=== PATIENT | male | born 1940 | race Caucasian/White ===

== ENCOUNTER 2017-10-08 05:25 | Day surgery (SDC) | payer MEDICARE, BC ==
[2017-10-02 11:46] LABS: HEMOGLOBIN 13.4 g/dL (13.5-17.0); MEAN CORPUSCULAR HEMOGLOBIN 29.4 pg (27.0-33.4); MEAN CORPUSCULAR HGB CONC 33.5 g/dL (32.0-36.0); MEAN CORPUSCULAR VOLUME 88 fl (80-97); PLATELET COUNT 286 10^3/uL (150-450); RED BLOOD COUNT 4.55 10^6/uL (4.35-5.55); RED CELL DISTRIBUTION WIDTH 14.7 % (11.5-14.0); WHITE BLOOD COUNT 12.4 10^3/uL (4.0-10.5)
[2017-10-02 12:14] LABS: ANION GAP 12 (5-19); BLOOD UREA NITROGEN 16 mg/dL (7-20); CALCIUM 9.6 mg/dL (8.4-10.2); CARBON DIOXIDE 31 mmol/L (22-30); CHLORIDE 104 mmol/L (98-107); GLUCOSE 97 mg/dL (75-110); POTASSIUM 3.9 mmol/L (3.6-5.0); SODIUM 146.6 mmol/L (137-145)
--- NOTE | 2017-10-02 13:19 | RADIOLOGY REPORT (SQ) ---
EXAM DESCRIPTION: CHEST PA/LATERAL COMPLETED DATE/TIME: 10/02/2017 11:09 am REASON FOR STUDY: PRE OP COMPARISON: None. EXAM PARAMETERS: NUMBER OF VIEWS: two views TECHNIQUE: Digital Frontal and Lateral radiographic views of the chest acquired. RADIATION DOSE: NA LIMITATIONS: none FINDINGS: LUNGS AND PLEURA: Mild diffuse interstitial prominence. Faint patchy densities in the low er lobes. No pleural effusion or pneumothorax. MEDIASTINUM AND HILAR STRUCTURES: No masses or contour abnormalities. HEART AND VASCULAR STRUCTURES: Mild cardiomegaly. BONES: No acute findings. HARDWARE: None in the chest. OTHER: No other significant finding. IMPRESSION: MILD CARDIOMEGALY. MILD INTERSTITIAL PROMINENCE COULD INDICATE A COMPONENT OF INTERSTIT IAL EDEMA. FAINT BASILAR DENSITIES POSSIBLY DUE TO ATELECTASIS. TECHNICAL DOCUMENTATION: JOB ID: [id number] [employer]- All Rights Reserved Reading location - IP/workstation name: [email or web address]
--- NOTE | 2017-10-02 13:34 | EKG REPORT ---
SEVERITY:- NORMAL ECG - SINUS RHYTHM : Confirmed by: René Bazzi MD 02-Oct-2017 13:33:37
[~2017-10-08 05:25] MED LIST: ACETAMINOPHEN 325 MG TABLET PO PRN; CEFAZOLIN SODIUM 2 GM in DEXTROSE 5%-WATER 100 ML IV PRN; LACTATED RINGERS 1000 ML IV PRN
[2017-10-08] MEDS ORDERED: DEXAMETHASONE SOD PHOSPHATE INJ 4 MG/1 ML VIAL ONE (06:24)
[2017-10-08] MEDS ORDERED: MIDAZOLAM 2 MG/2 ML INJ ONE (06:24)
[2017-10-08] MEDS ORDERED: FENTANYL CITRATE INJ/PF 100 MCG/2 ML AMPUL ONE ×3 (06:24→11:01)
[2017-10-08] MEDS ORDERED: ACETAMINOPHEN 100 ML IV ONE (06:25)
[2017-10-08] MEDS ORDERED: ONDANSETRON HCL INJ/PF 4 MG/2 ML SDV ONE (06:25)
[2017-10-08] MEDS ORDERED: PROPOFOL INJ 200 MG/20 ML VIAL IV ONE (06:25)
[2017-10-08] MEDS ORDERED: LIDOCAINE 2% INJ-PF (20 MG/ML) 10 ML AMPUL ONE (06:25)
[2017-10-08] MEDS ORDERED: LIDOCAINE 1% INJ-PF (10 MG/ML) 30 ML SDV ONE (06:27)
[2017-10-08] MEDS ORDERED: BUPIVACAINE HCL 0.25% /EPINEPHRINE INJ/PF 30 ML SDV ONE (06:28)
[2017-10-08] MEDS ORDERED: BUPIVACAINE HCL 0.25 % INJ/PF (2.5 MG/1 ML) 30 ML VIAL ONE (07:25)
[2017-10-08] MEDS ORDERED: VECURONIUM BROMIDE INJ 10 MG VIAL IV ONE (09:38)
[2017-10-08] MEDS ORDERED: GLYCOPYRROLATE INJ 0.4 MG/2 ML VIAL ONE (09:38)
[2017-10-08] MEDS ORDERED: PHENYLEPHRINE HCL INJ/PF 10 MG/1 ML SDV ONE (09:38)
[2017-10-08] MEDS ORDERED: NEOSTIGMINE METHYLSULFATE 10 MG/10 ML VIAL ONE (09:38)
[2017-10-08] MEDS ORDERED: DIPHENHYDRAMINE HCL 50 MG/ML VIAL IV PRN (10:32)
[2017-10-08] MEDS ORDERED: PROMETHAZINE HCL INJ 25 MG/1 ML VIAL IV PRN ×2 (10:32)
[2017-10-08] MEDS ORDERED: FENTANYL CITRATE INJ/PF 100 MCG/2 ML AMPUL IV PRN ×3 (10:32)
[2017-10-08] MEDS ORDERED: MEPERIDINE HCL/PF INJ 25 MG/1 ML DISP.SYRIN IV PRN (10:32)
[2017-10-08] MEDS ORDERED: OXYCODONE-ACETAMINOPHEN 5-325 MG TABLET PO PRN ×2 (10:32)
[2017-10-08] MEDS ORDERED: MORPHINE SULFATE 10 MG/ML INJ IV PRN (10:32)
--- NOTE | 2017-10-08 10:54 | Operative Report ---
Nonrecallable Operative Report DATE OF SURGERY: 10/08/17 PREOPERATIVE DIAGNOSIS: 1. Bilateral inguinal hernias. 2. Symptomatic umbilical hernia. POSTOPERATIVE DIAGNOSIS: Same as above. OPERATION: 1. Bilateral robot assisted laparoscopic inguinal hernia repair with mesh. 2. Open umbilical hernia repair with mesh. SURGEON: RYAN FREED ANESTHESIA: GA TISSUE REMOVED OR ALTERED: none COMPLICATIONS: None apparent ESTIMATED BLOOD LOSS: Minimal PROCEDURE: Drains/implants: 1. right sided large 3 DMax inguinal hernia mesh. 2. Left sided large 3 DMax inguinal hernia mesh. 3. 6.[address] umbilical hernia mesh. Procedure in detail: After informed consent was obtained, the patient was laid in the operating room in the supine position. The area of the abdomen was prepped and draped in a normal sterile fashion. The umbilical hernia was identified. A curvilinear incision was created superior to the umbilicus. Dissection was carried down through the subcutaneous tissue using sharp and blunt dissection. Cicatrix was elevated away from the abdominal wall, and the hernia sac was divided. The hernia defect was used to introduce the 12 millimeter balloon trocar. Gas was then attached, and pneumoperitoneum was achieved. 2 lateral 8 mm trochars were then placed under direct laparoscopic visualization. The robot was brought over the patient and docked appropriately. Instruments were inserted, and I assumed my position at the surgeon's console. Attention was turned to the right groin. Bovie electrocautery was used to score the peritoneum 2-3 cm superior to the hernia defect. A preperitoneal dissection was then undertaken. The hernia sac was freed from the cord structures, taking great care not to injure the cord structures. Once this was performed, the 3D max inguinal hernia mesh was introduced into the abdominal cavity. It was situated in the pre-peritoneal space. It was sutured medially and superiorly. This was done with 2-0 Vicryl suture. Once this was completed , 2-0 V lock suture was used to close the peritoneum in simple running fashion. Attention was then turned to the left groin. In similar fashion, the peritoneum was opened and the hernia sac was dissected free of the cord structures. Again, great care was taken not to injure the cord structures. Once the hernia sac was freed, it was everted. A large 3 DMax left-sided inguinal hernia mesh was placed into the abdomen and situated in the preperitoneal space. The mesh was sutured to the abdominal wall using 2-0 Vicryl suture medially and superiorly. Once this was completed, and the mesh was found to lie in good place. The peritoneum was closed using 2-0 V lock suture in simple running fashion. Once this was completed, bilateral groins were inspected. The hernia repairs appeared in good order. Once this was confirmed the trochars were removed and pneumoperitoneum was relieved. Attention was then turned to closure of the umbilical hernia defect. The umbilical defect appeared to be approximately 1.5-2 cm. Secondary to this, a 6.4 cm mesh was chosen to cover the defect. The 6.[address] hernia mesh was inserted into the abdominal cavity. It was sutured in 4 quadrants using #1 Prolene suture in mattress fashion. The overlying fascia was closed using #1 Prolene suture. The cicatrix was tacked to the abdominal fascia using 3-0 Vicryl suture. The subcutaneous tissue was closed using 3-0 Vicryl suture. The overlying skin was closed using 4-0 Vicryl Rapide suture in subcuticular fashion. Dressings were then fashioned, and the procedure was concluded. All sponge, instrument, and needle counts were correct 2. Condition: Stable.
[2017-10-08] MEDS: HYDROCODONE/ACETAMINOPHEN 10-325 MG TABLET ONE ×2 (11:40→13:12)
[2017-10-08 13:08] VITALS: BP 168/84
== END 2017-10-08 12:50 | disposition home or self-care (01) ==
LOC: OROUT 05:25
PROVIDERS: ATTEND Surgery
DX: K40.20 Bilateral inguinal hernia, without obstruction or gangrene, not specified as recurrent (principal); K42.9 Umbilical hernia without obstruction or gangrene; K21.9 Gastro-esophageal reflux disease without esophagitis; E78.00 Pure hypercholesterolemia, unspecified; I10 Essential (primary) hypertension; Z79.899 Other long term (current) drug therapy
CPT/HCPCS: 49585; 49650; S2900; 36415; 71046; 80048; 830; 85027; 93005; 93010; J0131; J0690; J1100; J2250; J2370; J2405; J2704; J3010; J3490

== ENCOUNTER 2018-10-29 11:24 | Day surgery (SDC) | payer MEDICARE, BC ==
[2018-10-23 09:26] LABS: ANION GAP 10 (5-19); BLOOD UREA NITROGEN 16 mg/dL (7-20); CALCIUM 9.7 mg/dL (8.4-10.2); CARBON DIOXIDE 29 mmol/L (22-30); CHLORIDE 104 mmol/L (98-107); GLUCOSE 124 mg/dL (75-110); POTASSIUM 4.6 mmol/L (3.6-5.0); SODIUM 142.8 mmol/L (137-145)
--- NOTE | 2018-10-23 14:36 | EKG REPORT ---
SEVERITY:- NORMAL ECG - SINUS RHYTHM : Confirmed by: René Bazzi MD 23-Oct-2018 14:35:09
[~2018-10-29 11:24] MED LIST changes: -ACETAMINOPHEN 325 MG TABLET PO PRN; -CEFAZOLIN SODIUM 2 GM in DEXTROSE 5%-WATER 100 ML IV PRN; -LACTATED RINGERS 1000 ML IV PRN; +MIDAZOLAM 2 MG/2 ML INJ ONE; +PROPOFOL INJ 200 MG/20 ML VIAL IV ONE
[2018-10-29] MEDS ORDERED: DIPHENHYDRAMINE HCL 50 MG/ML VIAL IV PRN (12:00)
[2018-10-29] MEDS ORDERED: MORPHINE SULFATE 10 MG/ML INJ IV PRN (12:00)
[2018-10-29] MEDS ORDERED: FENTANYL CITRATE INJ/PF 100 MCG/2 ML AMPUL IV PRN ×3 (12:00)
[2018-10-29] MEDS ORDERED: MEPERIDINE HCL/PF INJ 25 MG/1 ML DISP.SYRIN IV PRN (12:00)
[2018-10-29] MEDS ORDERED: ONDANSETRON HCL INJ/PF 4 MG/2 ML SDV IV PRN (12:00)
[2018-10-29] MEDS ORDERED: PROMETHAZINE HCL INJ 25 MG/1 ML VIAL IV PRN ×2 (12:00)
--- NOTE | 2018-10-29 12:53 | Operative Report ---
Nonrecallable Operative Report DATE OF SURGERY: 10/29/18 PREOPERATIVE DIAGNOSIS: 1. Screening for malignancy. 2. Personal history of colon polyps. POSTOPERATIVE DIAGNOSIS: Normal screening colonoscopy OPERATION: Normal screening colonoscopy SURGEON: RYAN FREED ANESTHESIA: LMAC TISSUE REMOVED OR ALTERED: None COMPLICATIONS: None apparent ESTIMATED BLOOD LOSS: Minimal PROCEDURE: Procedure detail: After informed consent was obtained, the patient was brought to the operating room and laid in the left lateral decubitus position. The endoscope was passed up the rectum, sigmoid colon, descending colon, across the transverse colon, down the ascending colon, and into the cecum. The ileocecal valve and appendiceal orifice were identified. The scope was then withdrawn, circumferentially noting the mucosa. The prep was fair. Multiple washings and suctioning's were required in order to visualize the entirety of the mucosa. This was successful. The scope was withdrawn past the ascending colon, transverse colon, down the descending colon, sigmoid colon, and into the rectum. In the rectum, a retroflexion maneuver was performed noting no significant internal hemorrhoids. The scope was straightened, air was suctioned from the rectum, the scope was removed, and the procedure was concluded. Please note there were no masses, lesions, polyps, ulcerations, diverticula, or other abnormalities noted. All sponge, instrument, and needle counts were correct x2. Condition: Stable. Recommendation: Repeat colonoscopy in 5 years due to a personal history of colon polyps.
--- NOTE | 2018-10-29 12:54 | Discharge Summary ---
Discharge Summary (SDC) - Discharge Final Diagnosis: Normal screening colonoscopy, history of colon polyps Date of Surgery: 10/29/18 Discharge Date: 10/29/18 Forms: Discharge POC-Adult, EU Anesthesia D/C Instructions, GI Unit Discharge Treatment or Instructions: Discharge home. Diet as tolerated. Activity as tolerated. Follow-up with me as needed. Patient will require a repeat colonoscopy in 5 years due to a p ersonal history of colon polyps. Referrals: ENIO ROBLES MD [Primary Care Provider] - Discharge Diet: As Tolerated Respiratory Treatments at Home: Deep Breathing/Coughing, Incentive Spirometer Discharge Activity: Balance Activity w/Rest Home Care Assistance: None Needed Report the Following to Your Physician Immediately: Shortness of Breath, Nausea, Vomiting, Increase in Pain, Fever over 101 Degrees, Unusual Bleeding, Redness
[2018-10-29 12:57] VITALS: BP 120/58
== END 2018-10-29 13:08 | disposition home or self-care (01) ==
LOC: OROUT 11:24
PROVIDERS: ATTEND Surgery
DX: Z12.11 Encounter for screening for malignant neoplasm of colon (principal); Z86.010 Personal history of colon polyps; E78.00 Pure hypercholesterolemia, unspecified; I10 Essential (primary) hypertension; Z79.82 Long term (current) use of aspirin; Z79.899 Other long term (current) drug therapy
CPT/HCPCS: 93005; 36415; 80048; 93010; 00811; G0121; J2250; J2704; 45378; 811